=== PATIENT | female | born 1980 | race American Indian/Alaskan Native ===

== ENCOUNTER → 2018-01-22 | Outpatient (CLI) | payer OTHER ==
[~2018-01-22] MED LIST: AMOX250 PO; HYDACE5 PO; HYDACE5325 PO; IBUP600 PO; METR500 PO; NAPR500 PO; PENVK500 PO; PROM25; PROM25 PO; Percocet 5-3251 EACH PO; RXHYD5325 PO; SUCR1 PO; Sudogest60 MG PO; TYLECOD3 PO
== END | disposition home or self-care (01) ==
LOC: LAB SHORT 09:44 → LAB EV 09:44
DX: J02.9 Acute pharyngitis, unspecified (principal)
CPT/HCPCS: 87070

== ENCOUNTER 2018-02-26 09:28 | Emergency (ER) | payer OTHER ==
[~2018-02-26] VITALS: Ht 167.6 cm; Wt 81.7 kg
[2018-02-26] MEDS ORDERED: ALBU90OI6 INH (09:34)
[2018-02-26] MEDS ORDERED: Augmentin 875-1 EACH PO (10:20)
[2018-02-27] MEDS ORDERED: Zofran Odt4 MG PO (05:55)
== END 2018-02-26 10:29 | disposition home or self-care (01) ==
LOC: ER 09:28
DX: K05.00 Acute gingivitis, plaque induced (principal); K04.7 Periapical abscess without sinus
CPT/HCPCS: 96372; 99282; J1885

== ENCOUNTER 2018-02-27 03:56 | Emergency (ER) | payer OTHER ==
[~2018-02-27] VITALS: Ht 167.6 cm; Wt 81.7 kg
[~2018-02-27 03:56] MED LIST changes: +ALBU90OI6 INH; +Augmentin 875-1 EACH PO
[2018-02-27] MEDS ORDERED: Zofran Odt4 MG PO (05:55)
== END 2018-02-27 06:04 | disposition home or self-care (01) ==
LOC: ER 03:56
DX: K04.7 Periapical abscess without sinus (principal); R11.2 Nausea with vomiting, unspecified; Z87.891 Personal history of nicotine dependence
CPT/HCPCS: 96365; 96375; 99282-25; J1100; J2405; J3010

== ENCOUNTER 2020-07-18 17:00 | Emergency (ER) | payer OTHER ==
[~2020-07-18 17:00] MED LIST changes: +Pepcid20 MG PO; +Zofran Odt4 MG PO
== END 2020-07-18 18:14 | disposition left against medical advice (07) ==
LOC: ER 17:00
DX: Z53.21 Procedure and treatment not carried out due to patient leaving prior to being seen by health care provider (principal)